=== PATIENT | female | born 1940 | race Asian ===

== ENCOUNTER 2021-01-20 19:59 | Emergency (ER) | payer MEDICARE, MEDICAID, SELFPAY ==
--- NOTE | ~2021-01-20 | CT_ITS ---
EXAMINATION: CT brain wo con DATE: 01/20/2021 21:37 INDICATION: Acute headache. Dizziness. TECHNIQUE: Computed tomography (CT) of the head was performed without intravenous contrast. The mA wa s adjusted according to patient size. Iterative reconstruction technique was employed. Exam dose: 60 5.33 mGy-cm total exam DLP. COMPARISON: None FINDINGS: Bilateral basal ganglia calcification. Bilateral carotid siphon internal carotid artery calcifications. No intracranial mass lesion or hemorrhage or cerebrovascular accident. No midline shift or mass effec t effect. No subdural or epidural hematoma. No fracture or bone destruction of the cranial vault. Mastoid air cells and paranasal sinuses are nor leo developed and aerated. IMPRESSION: No acute intracranial abnormality Reviewed, dictated and finalized at [facility]. Reviewed, dictated and finalized at [facility].
--- NOTE | ~2021-01-20 | XR_ITS ---
XR chest 2V DATE: 01/20/2021 20:28 INDICATION: Chest pain, shortness of breath, dizziness TECHNIQUE: PA and lateral views COMPARISON: None FINDINGS: Normal heart size. No hilar or mediastinal enlargement. No pulmonary infiltrate or consolid ation, pleural effusion or pulmonary vascular congestion or pneumothorax. Status post cholecystectomy. IMPRESSION: No active cardiopulmonary disease Status post cholecystectomy Reviewed, dictated and finalized at [facility].
--- NOTE | 2021-01-20 20:02 | ECG_ITS ---
Measurements Intervals [place] Rate: 60 P: 163 MI: 164 QRS: 161 QRSD: 83 T: 122 QT: 414 QTc: 414 Interpretive Statements SINUS RHYTHM ARM LEADS REVERSED ATYPICAL ECG Electronically Signed On 01-20-2021 20:07:12 CDT by Dov Carr D.O.
[2021-01-20 20:08] VITALS: BP 149/65; PULSE 58; RESP 16; TEMP 36.3; O2SAT 99
[2021-01-20 20:24] LABS: Basophils Absolute Auto 0.1 K/mm3 (0.0-0.1); Basophils Percent Auto 0.8 % (0.2-1.2); Eosinophils Absolute Auto 0.2 K/mm3 (0-0.3); Eosinophils Percent Auto 2.6 % (0-4.4); Hematocrit 36.4 % (37.0-47.0); Hemoglobin 12.2 g/dL (12.0-15.0); Immature Granulocyte Absolute 0.02 K/mm3 (0.00-0.031); Immature Granulocyte Percent A 0.3 % (0-0.5); Lymphocytes Absolute Auto 2.52 K/mm3 (0.9-3.2); Lymphocytes Percent Auto 40.4 % (18.3-44.2); Mean Corpuscular HGB Conc 33.5 g/dl (32-36); Mean Corpuscular Hemoglobin 30.3 pg (26-34); Mean Corpuscular Volume 90.3 fl (80-100); Mean Platelet Volume 10.6 fl (7.4-10.4); Monocytes Absolute Auto 0.6 K/mm3 (0.1-0.6); Monocytes Percent Auto 8.8 % (2.6-8.5); Neutrophils Absolute Auto 2.9 K/mm3 (1.3-6.7); Neutrophils Percent Auto 47.1 % (45.5-73.1); Platelet Count Result 261 k/mm3 (150-375); Red Blood Count 4.03 M/mm3 (4.2-5.4); Red Cell Distribution Width 11.5 % (11.5-14.5); White Blood Count 6.2 K/mm3 (4.5-10.0)
[2021-01-20 20:38] LABS: Anion Gap 6 mmol/L (8-16); Blood Urea Nitrogen 9 mg/dL (7-17); Carbon Dioxide 30 mmol/L (22-30); Chloride 97 mmol/L (98-107); Estimated Glomerular Filt Rate > 60; Glucose 106 mg/dL (65-110); INR 1.1; Potassium 3.6 mmol/L (3.4-5.0); Prothrombin Time 13.6 Seconds (11.1-14.7); Sodium 133 mmol/L (137-145)
[2021-01-20 20:39] LABS: Partial Thromboplastin Time 30.1 SECONDS (22.3-36.8)
[2021-01-20 20:50] LABS: Troponin I < 0.012 ng/mL (0.000-0.034)
[2021-01-20 21:05] LABS: Alanine Aminotransferase 29 U/L (4-35); Albumin Level 4.1 g/dL (3.5-5.1); Alkaline Phosphatase 40 U/L (38-126); Aspartate Amino Transferase 35 U/L (14-36); Bilirubin,Total 0.6 mg/dL (0.2-1.3); Lipase 88 U/L (23-300)
[2021-01-20] MEDS: ASPIRIN 81 MG CHEWABLE TABLET 324 MG PO (21:07)
--- NOTE | 2021-01-20 21:22 | ED.CHESTPAIN ---
HPI - Chest Pain General Chief Complaint: Chest Pain Stated Complaint: chest pain Time Seen by Provider: 01/20/21 20:26 Source: patient and family Mode of arrival: ambulatory Limitations: language barrier History of Present Illness HPI narrative: This is an 80 year old [place] woman who presents with family for evaluation of headache and chest pain. Patient's daughter is at bedside assisting with history. She reports patient has been having daily headache with chest pain for 1 year. Patient has been evaluated for this pain before and most recently 1 month ago. She was evaluated at [facility] for headache and chest pain. Her daughter states her evaluation was unremarkable. She reports patient had MRI , echo and labs. Patient developed headache and chest pain around noon today. She reports constant diffuse headache without any exacerbating factors. Her headache and chest pain occur together. She reports blurred vision. Denies nausea, vomiting, fever or chills. She reports body aches. She took Tylenol at noon and she still has headache so her daughter wants her evaluated again. She denies cough or shortness of breath. Related Data Allergies Allergy/AdvReac Type Severity Reaction Status Date / Time No Known Allergies Allergy Verified 01/20/21 20:03 Review of Systems Review of Systems: All systems reviewed & are unremarkable except as noted in HPI and below PMFSH Past Medical History Medical History (Updated 01/21/21 @ 00:01 by Krystal Mccullough MD) Diabetes mellitus Hypertension Social History Social History (Updated 01/20/21 @ 21:29 by Krystal Mccullough MD) Smoking status: Never smoker Exam Const: General: no acute distress and alert Orientation/consciousness: patient oriented x3 HENMT: Head: normocephalic and atraumatic Face and sinus: normal facial exam, sinuses nontender and face symmetric Throat: posterior oropharynx normal, tonsils normal and uvula midline Eyes: Pupils: Equal, round and reactive pupils present EOM: EOMs intact bilaterally Chest: Chest palpation & inspection: normal inspection of the chest Resp: Effort & Inspection: normal respiratory effort and no retractions Auscultation: clear to auscultation bilaterally Cardio: Rate: regular rate Rhythm: regular rhythm Heart sounds: no murmurs GI: GI Palp: Yes Soft to palpation, No Tenderness to palpation present (GI), No Guarding due to palpation present (GI) and No Rigid due to palpation Auscultation: normal bowel sounds Back/Spine/Pelvis: Back: no CVA tenderness Skin: General skin exam: normal color Rashes: no rashes Neuro: General: patient oriented x3, moves all extremities and CN's II-XI intact bilaterally Psych: Mental Status: mental status grossly normal Affect: normal affect Course Reevaluation(s) Reevaluation #1: Patient reports she feels better. She does not have any pain. Her symptoms are atypical. I discussed with patient and daughter that she will need to continue to follow up with PCP Date: 01/20/21 Time: 23:57 Vital Signs Vital signs: Vital Signs Temperature 97.3 F L 01/20/21 20:08 Pulse Rate 58 L 01/20/21 20:08 Respiratory Rate 16 01/20/21 20:08 Blood Pressure 149/65 H 01/20/21 20:08 Pulse Oximetry 99 01/20/21 20:08 Temperature 97.3 F L 01/20/21 20:08 Pulse Rate 58 L 01/20/21 20:08 Respiratory Rate 16 01/20/21 20:08 Blood Pressure 149/65 H 01/20/21 20:08 Pulse Oximetry 99 01/20/21 20:08 MDM - Chest Pain Lab Data Attestation: I reviewed the patient's lab results. Result diagrams: 01/20/21 20:13 01/20/21 20:13 Labs: Lab Results 01/20/21 01/20/21 01/20/21 Range/Units 20:13 20:13 20:13 WBC 6.2 (4.5-10.0) K/mm3 RBC 4.03 L (4.2-5.4) M/mm3 Hgb 12.2 (12.0-15.0) g/dL Hct 36.4 L (37.0-47.0) % MCV 90.3 (80-100) fl MCH 30.3 (26-34) pg MCHC 33.5 (32-36) g/dl RDW 11.5 (11.5-14.5) % Plt Count 261 (15
[2021-01-20] MEDS: SODIUM CHLORIDE 0.9% IV 1,000 ML 999 ML IV CONT (21:23)
[2021-01-20 21:30] VITALS: PULSE 62
[2021-01-20 22:18] LABS: D Dimer 0.31 ug/mL (<0.48)
[2021-01-20 22:39] LABS: Add Urine Microscopic? NO; Appearance Urine Clear (Clear); Bilirubin Urine Negative (Negative); Blood Urine Negative (Negative); Color Urine Colorless (Yellow); Glucose Urine UA Negative (Negative); Ketones Urine Negative (Negative); Leukocyte Esterase Ur Negative LEU/UL (Negative); Nitrate Urine Negative (Negative); Protein Urine Negative (Negative); Urobilinogen Urine Negative mg/dL (<2.0)
[2021-01-20 22:52] LABS: Specific Grav Ur 1.003 (1.001-1.035)
[2021-01-20 23:51] LABS: Troponin I < 0.012 ng/mL (0.000-0.034)
[2021-01-21 00:44] VITALS: BP 107/56; PULSE 61; RESP 16; O2SAT 97
== END 2021-01-21 00:25 | disposition home or self-care (01) ==
PROVIDERS: Emergency Medicine; Emergency Provider General Practice
DX: R51.9 Headache, unspecified (principal); R07.89 Other chest pain; E11.9 Type 2 diabetes mellitus without complications; I10 Essential (primary) hypertension
CPT/HCPCS: 36415; 70450; 71046; 80048; 80076; 81003; 83690; 84484; 85025; 85380; 85610; 85730; 93005; 96361; 96365; 99284; A9270; J0131; J7030

== ENCOUNTER 2021-12-03 05:14 | Emergency (ER) | payer MEDICARE, MEDICAID, SELFPAY ==
--- NOTE | ~2021-12-03 | XR_ITS ---
EXAMINATION: XR chest 1V portable DATE: 12/03/2021 06:23 INDICATION: Generalized weakness. TECHNIQUE: A single frontal view of the chest was obtained. COMPARISON: Chest 2 views 01/20/2021 FINDINGS: There is mild atelectasis in the lower lung zones. No pleural effusion or pneumothorax. The heart size is normal. Surgical clips in the right upper quadrant are likely from cholecystectomy. IMPRESSION: 1. Mild atelectasis in the lower lung zones. Reviewed, dictated and finalized at location [facility].
[2021-12-03 05:18] VITALS: BP 149/70; PULSE 66; RESP 16; TEMP 36.1; O2SAT 97
--- NOTE | 2021-12-03 05:24 | ECG_ITS ---
Measurements Intervals [place] Rate: 57 P: 12 VT: 161 QRS: 16 QRSD: 87 T: 53 QT: 433 QTc: 424 Interpretive Statements SINUS BRADYCARDIA LOW QRS VOLTAGE IN PRECORDIAL LEADS BASELINE ARTIFACT- I, II, AVR, V1 BORDERLINE ECG COMPARED TO ECG 01/20/2021 20:05:54 NO SIGNIFICANT CHANGES Electronically Signed On 12-03-2021 6:58:56 CDT by Dov Carr D.O.
[2021-12-03] MEDS: ACETAMINOPHEN 500 MG TABLET 1000 MG PO (06:42)
[2021-12-03] MEDS: FAMOTIDINE 20 MG/2 ML VIAL IV PUSH (06:42)
[2021-12-03] MEDS: ONDANSETRON INJ 4 MG/2 ML VIAL IV PUSH (06:42)
[2021-12-03] MEDS: SODIUM CHLORIDE 0.9% IV 1,000 ML 999 ML IV CONT (06:43)
--- NOTE | 2021-12-03 06:54 | ED.GENADULT ---
HPI - General Adult General Chief complaint: Weakness Stated complaint: SOB, weakness, dizzy Time Seen by Provider: 12/03/21 05:40 History of Present Illness HPI narrative: Patient is [place]ien speaking. Her family is at bedside. This is an 81-year-old female presenting to the ED with flu-like symptoms for several days. Patient's symptoms include headache, fatigue, body aches, nausea. Denies vomiting or diarrhea. She denies chest pain/difficulty breathing. She denies fever/chills. She denies urinary symptoms. Related Data Allergies Allergy/AdvReac Type Severity Reaction Status Date / Time No Known Allergies Allergy Verified 01/20/21 20:03 Review of Systems Review of Systems: CONSTITUTIONAL: Denies night sweats. EYES: No eye pain ENT: Denies rhinorrhea CARDIOVASCULAR: Denies palpitations RESPIRATORY: Denies hemoptysis GASTROINTESTINAL: Denies hematemesis GENITOURINARY: Denies hematuria. SKIN: Denies rash MUSCULOSKELETAL: Denies myalgia. NEUROLOGIC: Denies weakness. PSYCHIATRIC: Denies delusions PMFSH Past Medical History Medical History Diabetes mellitus Hypertension Social History Social History Smoking status: Never smoker Exam Narrative: APPEARANCE: No apparent distress. Head atraumatic. EYES: PERRLA/EOMI, NOSE: Normal no drainage NECK: Supple, Trachea midline RESPIRATORY: CTAB, No increased work of breathing. CARDIOVASCULAR: S1S2 appreciated ABDOMINAL: Soft, nontender, nondistended, MUSCULOSKELETAl: No obvious deformities NEURO: Alert. Cranial nerves 2-12 grossly intact. Sensation light touch, motor function cerebellar function intact for 4 extremities. Gait exam was normal. SKIN:: Warm, dry. Normal color PSYCHIATRIC: Normal affect Course Vital Signs Vital signs: Vital Signs Temperature 97.0 F L 12/03/21 05:18 Pulse Rate 66 12/03/21 05:18 Respiratory Rate 16 12/03/21 05:18 Blood Pressure 149/70 H 12/03/21 05:18 Pulse Oximetry 97 12/03/21 05:18 Oxygen Delivery Room Air 12/03/21 05:18 Temperature 97.0 F L 12/03/21 05:18 Pulse Rate 68 12/03/21 08:42 Respiratory Rate 18 12/03/21 08:42 Blood Pressure 133/71 12/03/21 08:42 Pulse Oximetry 99 12/03/21 08:42 Oxygen Delivery Room Air 12/03/21 05:18 Medical Decision Making MDM Narrative Medical decision making narrative: This is an 81-year-old female presenting ED with flu-like symptoms for several days. Lab work, EKG, chest x-ray and COVID swab been ordered. Urinalysis has been sent. Patient has been given Tylenol, Zofran and a L of fluids. Patient has been signed out to the oncoming physician pending completion of her workup. Vital Signs Vital Signs: Vital Signs Temperature 97.0 F L 12/03/21 05:18 Pulse Rate 66 12/03/21 05:18 Respiratory Rate 16 12/03/21 05:18 Blood Pressure 149/70 H 12/03/21 05:18 Pulse Oximetry 97 12/03/21 05:18 Oxygen Delivery Room Air 12/03/21 05:18 Temperature 97.0 F L 12/03/21 05:18 Pulse Rate 68 12/03/21 08:42 Respiratory Rate 18 12/03/21 08:42 Blood Pressure 133/71 12/03/21 08:42 Pulse Oximetry 99 12/03/21 08:42 Oxygen Delivery Room Air 12/03/21 05:18 Lab Data Result diagrams: 12/03/21 06:54 12/03/21 06:54 Labs: Lab Results 12/03/21 12/03/21 12/03/21 Range/Units 06:54 06:54 06:54 WBC 5.7 (4.5-10.0) K/mm3 RBC 4.24 (4.2-5.4) M/mm3 Hgb 12.8 (12.0-15.0) g/dL Hct 39.4 (37.0-47.0) % MCV 92.9 (80-100) fl MCH 30.2 (26-34) pg MCHC 32.5 (32-36) g/dl RDW 12.0 (11.5-14.5) % Plt Count 285 (150-375) k/mm3 MPV 10.5 H (7.4-10.4) fl Immature Gran % (Auto) 0.2 (0-0.5) % Neut % (Auto) 49.9 (45.5-73.1) % Lymph % (Auto) 36.2 (18.3-44.2) % [place] % (Auto) 10.7 H (2.6-8.5) % Eos % (Auto) 1.9 (0-4.4) % Ba
[2021-12-03 07:08] LABS: Basophils Absolute Auto 0.1 K/mm3 (0.0-0.1); Basophils Percent Auto 1.1 % (0.2-1.2); Eosinophils Absolute Auto 0.1 K/mm3 (0-0.3); Eosinophils Percent Auto 1.9 % (0-4.4); Hematocrit 39.4 % (37.0-47.0); Hemoglobin 12.8 g/dL (12.0-15.0); Immature Granulocyte Absolute 0.01 K/mm3 (0.00-0.031); Immature Granulocyte Percent A 0.2 % (0-0.5); Lymphocytes Absolute Auto 2.06 K/mm3 (0.9-3.2); Lymphocytes Percent Auto 36.2 % (18.3-44.2); Mean Corpuscular HGB Conc 32.5 g/dl (32-36); Mean Corpuscular Hemoglobin 30.2 pg (26-34); Mean Corpuscular Volume 92.9 fl (80-100); Mean Platelet Volume 10.5 fl (7.4-10.4); Monocytes Absolute Auto 0.6 K/mm3 (0.1-0.6); Monocytes Percent Auto 10.7 % (2.6-8.5); Neutrophils Absolute Auto 2.8 K/mm3 (1.3-6.7); Neutrophils Percent Auto 49.9 % (45.5-73.1); Platelet Count Result 285 k/mm3 (150-375); Red Blood Count 4.24 M/mm3 (4.2-5.4); White Blood Count 5.7 K/mm3 (4.5-10.0)
[2021-12-03 07:16] LABS: Alanine Aminotransferase 26 U/L (6-35); Albumin Level 4.1 g/dL (3.5-5.1); Alkaline Phosphatase 41 U/L (38-126); Anion Gap 5 mmol/L (8-16); Aspartate Amino Transferase 31 U/L (14-36); Bilirubin,Total 0.5 mg/dL (0.2-1.3); Blood Urea Nitrogen 9 mg/dL (7-17); Calcium 8.6 mg/dL (8.4-10.2); Carbon Dioxide 28 mmol/L (22-30); Chloride 103 mmol/L (98-107); Estimated Glomerular Filt Rate > 60; Glucose 100 mg/dL (65-110); Potassium 3.8 mmol/L (3.4-5.0); Sodium 136 mmol/L (137-145)
[2021-12-03 07:27] LABS: Magnesium 2.1 mg/dL (1.6-2.3)
[2021-12-03 07:30] LABS: Troponin I < 0.012 ng/mL (0.000-0.034)
[2021-12-03 07:31] LABS: Add Urine Microscopic? NO; Appearance Urine Clear (Clear); Bilirubin Urine Negative (Negative); Blood Urine Negative (Negative); Color Urine Yellow (Yellow); Glucose Urine UA Negative (Negative); Ketones Urine Negative (Negative); Leukocyte Esterase Ur Negative LEU/UL (Negative); Nitrate Urine Negative (Negative); Protein Urine Negative (Negative); Specific Grav Ur 1.015 (1.001-1.035); Urobilinogen Urine 0.2 mg/dL (<2.0); pH Urine 7.5 (5.0-9.0)
[2021-12-03 07:34] VITALS: BP 155/69; PULSE 60; PULSE 64; RESP 18; O2SAT 97
[2021-12-03 07:43] LABS: SARS-CoV-2 RNA PCR Negative
[2021-12-03 08:42] VITALS: BP 133/71; PULSE 68; RESP 18; O2SAT 99
== END 2021-12-03 08:44 | disposition home or self-care (01) ==
PROVIDERS: Emergency Medicine; Emergency Provider Emergency Medicine
DX: J06.9 Acute upper respiratory infection, unspecified (principal); E11.9 Type 2 diabetes mellitus without complications; I10 Essential (primary) hypertension; Z20.822 Contact with and (suspected) exposure to COVID-19
CPT/HCPCS: 36415; 71045; 80053; 81003; 83735; 84484; 85025; 93005; 96361; 96374; 96375; 99284; A9270; C9803; J2405; J7030; U0003; U0005

== ENCOUNTER 2023-02-26 04:52 | Emergency (ER) | payer MEDICARE, MEDICAID, SELFPAY ==
[2023-02-26] VITALS (19 sets, daily range): BP systolic 130–167; BP diastolic 57–101; PULSE 56–92; RESP 12–20; TEMP 36.6–36.7; O2SAT 97–100
--- NOTE | 2023-02-26 05:01 | ECG_ITS ---
Measurements Intervals [place] Rate: 60 P: 36 WI: 154 QRS: 42 QRSD: 90 T: 66 QT: 419 QTc: 419 Interpretive Statements SINUS RHYTHM NORMAL ECG COMPARED TO ECG 12/03/2021 06:26:41 SINUS RHYTHM NOW PRESENT Electronically Signed On 02-26-2023 10:39:53 [employer]IOR [employer]EARCH ENGINEER by Beto Neri M.D.
[2023-02-26 06:57] LABS: Influenza A QL RT-PCR Negative (Negative); Influenza B QL RT-PCR Negative (Negative); RSV RNA, RT-PCR Negative (Negative); SARS-CoV-2 RNA PCR Negative (Negative)
--- NOTE | 2023-02-26 07:41 | ED.GENADULT ---
HPI - General Adult General Chief complaint: Dizziness Stated complaint: dizziness Time Seen by Provider: 02/26/23 07:01 History of Present Illness HPI narrative: patient is an 83-year-old female who ER with dizziness. Occurs with laying is standing. Occasional nausea and associated fatigue will days. No sinus congestion or sore throat or cough. No ringing in the ears. No spinning dizziness. Denies urinary frequency urgency or dysuria. She has been eating and drinking at home. Related Data Allergies Allergy/AdvReac Type Severity Reaction Status Date / Time No Known Allergies Allergy Verified 01/20/21 20:03 Review of Systems Review of Systems: All systems reviewed & are unremarkable except as noted in HPI and below Constitutional: Constitutional: Denies chills, Reports fatigue and Denies fever(s) ENT: Reports dizziness, Denies nasal congestion and Denies sore throat Cardiovascular: Cardiovascular: Reports no additional cardiovascular complaints Respiratory: Respiratory: Reports no additional respiratory complaints Gastrointestinal: Gastrointestinal: Denies abdominal pain, Denies diarrhea, Reports nausea and Denies vomiting PMFSH Past Medical History Medical History Diabetes mellitus Hypertension Social History Social History Smoking status: Never smoker Exam Narrative: GENERAL: Well-appearing, well-nourished, and in no acute distress. HEAD: Normocephalic, atraumatic. EYES: PERRL and EOMI. ENT: Mucous membranes moist. dried cerumen in ear canals bilaterally without impaction. CHEST: Clear to auscultation. No respiratory distress. HEART: Regular rate and rhythm. Normal peripheral pulses. ABDOMEN: Soft, nontender, nondistended. EXTREMITIES: Normal range of motion. No edema. NEURO: Alert and oriented x3. PSYCH: Normal mood and affect. Course Course Emergency Course: patient feels improved after IV fluids. Informed of lab results. Patient feels comfortable with discharge home. Vital Signs Vital signs: Vital Signs Temperature 98.1 F 02/26/23 04:54 Pulse Rate 66 02/26/23 04:54 Respiratory Rate 14 02/26/23 04:54 Blood Pressure 149/69 H 02/26/23 04:54 Pulse Oximetry 97 02/26/23 04:54 Oxygen Delivery Room Air 02/26/23 04:54 Temperature 98 F 02/26/23 05:45 Pulse Rate 58 L 02/26/23 09:16 Respiratory Rate 16 02/26/23 09:16 Blood Pressure 138/81 02/26/23 09:16 Pulse Oximetry 97 02/26/23 09:16 Oxygen Delivery Room Air 02/26/23 04:54 Medical Decision Making Vital Signs Vital Signs: Vital Signs Temperature 98.1 F 02/26/23 04:54 Pulse Rate 66 02/26/23 04:54 Respiratory Rate 14 02/26/23 04:54 Blood Pressure 149/69 H 02/26/23 04:54 Pulse Oximetry 97 02/26/23 04:54 Oxygen Delivery Room Air 02/26/23 04:54 Temperature 98 F 02/26/23 05:45 Pulse Rate 58 L 02/26/23 09:16 Respiratory Rate 16 02/26/23 09:16 Blood Pressure 138/81 02/26/23 09:16 Pulse Oximetry 97 02/26/23 09:16 Oxygen Delivery Room Air 02/26/23 04:54 Lab Data 02/26/23 07:33 02/26/23 07:33 Labs: Lab Results 02/26/23 02/26/23 02/26/23 Range/Units 05:31 07:33 07:42 WBC 5.7 (4.5-10.0) K/mm3 RBC 4.46 (4.2-5.4) M/mm3 Hgb 13.5 (12.0-15.0) g/dL Hct 41.1 (37.0-47.0) % MCV 92.2 (80-100) fl MCH 30.3 (26-34) pg MCHC 32.8 (32-36) g/dl RDW 11.9 (11.5-14.5) % Plt Count 301 (150-375) k/mm3 MPV 10.0 (7.4-10.4) fl Immature Gran % (Auto) 0.2 (0-0.5) % Neut % (Auto) 61.1 (45.5-73.1) % Lymph % (Auto) 26.6 (18.3-44.2) % [place] % (Auto) 9.3 H (2.6-8.5) % Eos % (Auto) 2.1 (0-4.4) % Baso % (Auto) 0.7 (0.2-1.2) % Lymph # (Auto) 1.52 (0.9-3.2) K/mm3 [place] # (Auto) 0.5 (0.1-0.6) K/mm3 Eos # (Auto) 0.1 (0-0.3) K/mm3 Baso # (A
[2023-02-26 07:42] LABS: Basophils Percent Auto 0.7 % (0.2-1.2); Eosinophils Absolute Auto 0.1 K/mm3 (0-0.3); Eosinophils Percent Auto 2.1 % (0-4.4); Hematocrit 41.1 % (37.0-47.0); Hemoglobin 13.5 g/dL (12.0-15.0); Immature Granulocyte Absolute 0.01 K/mm3 (0.00-0.031); Immature Granulocyte Percent A 0.2 % (0-0.5); Lymphocytes Absolute Auto 1.52 K/mm3 (0.9-3.2); Lymphocytes Percent Auto 26.6 % (18.3-44.2); Mean Corpuscular HGB Conc 32.8 g/dl (32-36); Mean Corpuscular Hemoglobin 30.3 pg (26-34); Mean Corpuscular Volume 92.2 fl (80-100); Monocytes Absolute Auto 0.5 K/mm3 (0.1-0.6); Monocytes Percent Auto 9.3 % (2.6-8.5); Neutrophils Absolute Auto 3.5 K/mm3 (1.3-6.7); Neutrophils Percent Auto 61.1 % (45.5-73.1); Platelet Count Result 301 k/mm3 (150-375); Red Blood Count 4.46 M/mm3 (4.2-5.4); Red Cell Distribution Width 11.9 % (11.5-14.5); White Blood Count 5.7 K/mm3 (4.5-10.0)
[2023-02-26] MEDS: SODIUM CHLORIDE 0.9% IV 1,000 ML 999 ML IV CONT (07:42)
[2023-02-26] MEDS: ONDANSETRON INJ 4 MG/2 ML VIAL IV PUSH (07:43)
[2023-02-26 07:48] LABS: Appearance Urine Clear (Clear); Bilirubin Urine Negative (Negative); Blood Urine Negative (Negative); Color Urine Yellow (Yellow); Glucose Urine UA Negative (Negative); Ketones Urine Negative (Negative); Leukocyte Esterase Ur Negative LEU/UL (Negative); Nitrate Urine Negative (Negative); Protein Urine Negative (Negative); Specific Grav Ur 1.004 (1.001-1.035); pH Urine 7.5 (5.0-9.0)
[2023-02-26 07:50] LABS: Add Urine Microscopic? NO
[2023-02-26 07:51] LABS: Alanine Aminotransferase 22 U/L (6-35); Albumin Level 4.3 g/dL (3.5-5.1); Alkaline Phosphatase 50 U/L (38-126); Anion Gap 4 mmol/L (8-16); Aspartate Amino Transferase 29 U/L (14-36); Bilirubin,Total 0.7 mg/dL (0.2-1.3); Blood Urea Nitrogen 8 mg/dL (7-17); Calcium 9.1 mg/dL (8.4-10.2); Carbon Dioxide 30 mmol/L (22-30); Chloride 106 mmol/L (98-107); Estimated Glomerular Filt Rate > 60; Glucose 101 mg/dL (65-110); Sodium 140 mmol/L (137-145)
== END 2023-02-26 09:50 | disposition home or self-care (01) ==
PROVIDERS: Emergency Medicine; Emergency Provider Emergency Medicine
DX: R42 Dizziness and giddiness (principal); Z20.822 Contact with and (suspected) exposure to COVID-19; E11.9 Type 2 diabetes mellitus without complications; I10 Essential (primary) hypertension
CPT/HCPCS: 36415; 80053; 81003; 84443; 85025; 87634; 87636; 93005; 96361; 96374; 99284; J2405; J7030